=== PATIENT | female | born 1975 | race Caucasian/White ===

== ENCOUNTER 2019-01-02 15:35 | Outpatient (CLI) | payer OTHER ==
[2019-01-02] MEDS ORDERED: ONDA4TAB7 PO (16:08)
[2019-01-02] MEDS ORDERED: GABA100C PO (16:08)
[2019-01-02] MEDS ORDERED: VALA500T4 PO (16:08)
[2019-01-02] MEDS ORDERED: CITA10TA8 PO (16:08)
[2019-01-02] MEDS ORDERED: LORA0.5T PO (16:08)
[2019-01-02] MEDS ORDERED: progesterone cream TP (16:08)
[2019-01-02] MEDS ORDERED: reishi PO (16:24)
[2019-01-02] MEDS ORDERED: CHOL500045 PO (16:24)
[2019-01-02] MEDS ORDERED: LYSI500T25 PO (16:24)
[2019-01-02] MEDS ORDERED: [UNRECOGNIZED DRUG - OTHER] PO (16:24)
[2019-01-02] MEDS ORDERED: ALBU18HF INH (16:24)
[2019-01-02] MEDS ORDERED: MULT-658 PO (16:24)
[2019-01-02] MEDS ORDERED: ALBU0.63 NEB (16:24)
[2019-01-02 16:40] LABS: BASOPHILS # (AUTO) 0.04 x10^3/uL (0-0.1); BASOPHILS % (AUTO) 1 % (0-1); EOSINOPHILS # (AUTO) 0.18 x10^3/uL (0-0.4); EOSINOPHILS % (AUTO) 3 % (1-7); LYMPHOCYTES # (AUTO) 2.03 x10^3/uL (1-3.4); LYMPHOCYTES % (AUTO) 30 % (22-44); MD NO; MEAN CORPUSCULAR HEMOGLOBIN 32.7 pg (27.0-34.8); MEAN CORPUSCULAR HGB CONC 33.5 g/dL (32.4-35.8); MEAN CORPUSCULAR VOLUME 97.5 fL (80-100); MEAN PLATELET VOLUME 8.7 fL (7.4-10.4); MONOCYTES # (AUTO) 0.61 x10^3/uL (0.2-0.8); MONOCYTES % (AUTO) 9 % (2-9); NEUTROPHILS # (AUTO) 3.93 x10^3/uL (1.8-6.8); NEUTROPHILS % (AUTO) 58 % (42-75); PLATELET COUNT 234 x10^3/uL (130-400); RED BLOOD COUNT 4.48 x10^6/uL (3.82-5.3); RED CELL DISTRIBUTION WIDTH 12.6 % (9.6-15.2)
[2019-01-02 16:50] LABS: ALANINE AMINOTRANSFERASE 18 U/L (12-78); ANION GAP 5 mmol/L (5-15); CALCIUM 8.8 mg/dL (8.5-10.1); CHLORIDE 108 mmol/L (98-107); CREATININE 0.78 mg/dL (0.55-1.02)
[2019-01-02 16:51] LABS: ALKALINE PHOSPHATASE 57 U/L (45-117); BILIRUBIN,TOTAL 0.3 mg/dL (0.2-1.0); TOTAL PROTEIN 7.2 g/dL (6.4-8.2)
[2019-01-10] MEDS ORDERED: HYDR1TAB13 PO (16:28)
[2019-01-10] MEDS ORDERED: IBUP200T49 PO (16:29)
== END 2019-01-02 23:59 | disposition home or self-care (01) ==
LOC: STAR 15:35
PROVIDERS: ATTEND Specialist
DX: Z01.818 Encounter for other preprocedural examination (principal); D25.9 Leiomyoma of uterus, unspecified
CPT/HCPCS: 36415; 80053; 85025; 93005

== ENCOUNTER 2019-01-09 10:08 | Observation (INO) | payer OTHER ==
[~2019-01-09] VITALS: Ht 170.2 cm; Wt 63.6 kg
== END 2019-01-10 16:48 | disposition home or self-care (01) ==
LOC: OUT 10:08 → 4NOR 16:20 → OUT 23:29 → 4NOR 23:30 → DCLOUNGE 01-10 16:17
PROVIDERS: ADMIT Specialist; ATTEND Specialist
DX: D25.9 Leiomyoma of uterus, unspecified (principal); D50.9 Iron deficiency anemia, unspecified; G04.90 Encephalitis and encephalomyelitis, unspecified; G40.909 Epilepsy, unspecified, not intractable, without status epilepticus; N83.201 Unspecified ovarian cyst, right side; N83.8 Other noninflammatory disorders of ovary, fallopian tube and broad ligament; I34.1 Nonrheumatic mitral (valve) prolapse; Z90.711 Acquired absence of uterus with remaining cervical stump; Z88.2 Allergy status to sulfonamides; Z88.0 Allergy status to penicillin
CPT/HCPCS: 36415; 58140; 81025; 85014; 85018; 88304; 96365; 96375; 96376; C1765; G0378; J0456; J1170; J1885; J2250; J2405; J2704; J3010; J3480; J7050; J7120; J7121; J8501; S0077